=== PATIENT | male | born 1945 | race Caucasian/White ===

== ENCOUNTER 2021-03-25 03:37 | Observation (INO) | payer MEDICARE, OTHER ==
[~2021-03-25] VITALS: Ht 175.3 cm; Wt 79.4 kg
[2021-03-25 03:41] VITALS: BP 154/91
[2021-03-25] MEDS ORDERED: METFORMIN HCL500 M3 PO (03:54)
[2021-03-25] MEDS ORDERED: GLIPIZIDE 10 MG10 MG PO (03:54)
[2021-03-25] MEDS ORDERED: AVAPRO75 MG PO (03:56)
[2021-03-25] MEDS ORDERED: ASA81BEC PO (03:56)
[2021-03-25] MEDS ORDERED: CRESTOR10 MG PO (03:57)
[2021-03-25] MEDS ORDERED: SORINE 80 MG TA80 MG PO (03:58)
[2021-03-25 04:02] LABS: ABSOLUTE BASOPHILS 0.1 thou/uL (0.0-0.2); ABSOLUTE EOSINOPHILS 0.7 thou/uL (0.0-0.7); ABSOLUTE LYMPHOCYTES 1.6 thou/uL (0.8-5.3); ABSOLUTE MONOCYTES 1.1 thou/uL (0.0-1.2); ABSOLUTE NEUTROPHILS 5.5 thou/uL (1.6-8.1); BASOPHILS 0.7 %; EOSINOPHILS 7.9 %; HEMATOCRIT 47.1 % (42.0-52.0); HEMOGLOBIN 15.8 gm/dL (14.0-18.0); LYMPHOCYTES 17.8 %; MCH 32.2 pg (26.0-34.0); MCHC 33.5 g/dL (28.0-37.0); MCV 95.9 fL (80.0-100.0); MONOCYTES 11.9 %; MPV 11.1 fl. (7.2-11.1); NUCLEATED RBCS 0 /100WBC; PLATELET COUNT* 130 thou/uL (150-400); POLYS 61.7 %; RBC 4.91 mil/uL (4.50-6.00); RDW-CV 13.6 % (10.5-14.5); WBC 8.8 thou/uL (4.0-11.0)
[2021-03-25 04:27] LABS: CREATININE 1.6 mg/dL (0.6-1.3); POTASSIUM 4.1 mmol/L (3.5-5.1)
[2021-03-25 04:30] LABS: APTT 25.5 Seconds (25.0-31.3); PROTIME 10.5 Seconds (9.20-11.50)
[2021-03-25 04:38] LABS: TOTAL BILIRUBIN 0.4 mg/dL (<0.1-1.0); TOTAL PROTEIN 7.5 g/dL (6.4-8.2)
[2021-03-25 04:42] LABS: URINE BILIRUBIN NEGATIVE (Negative); URINE BLOOD TRACE (Negative); URINE CLARITY CLEAR; URINE COLOR YELLOW; URINE GLUCOSE-RANDOM TRACE (Negative); URINE KETONES NEGATIVE (Negative); URINE LEUKOCYTES-REFLEX NEGATIVE (Negative); URINE NITRITE-REFLEX NEGATIVE (Negative); URINE PROTEIN 1+ (Negative); URINE SPECIFIC GRAVITY <= 1.005 (1.005-1.030); URINE UROBILINOGEN 0.2 E.U./dl (0.2-1.0)
--- NOTE | 2021-03-25 09:34 | EKG ---
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1945 Requested By: Maria Hernandez Order Number: [id number] MD: Francisco Javier Figueroa Measurements Intervals [place] Rate: 93 P: [place]: QRS: 79 QRSD: 138 T: -77 QT: 354 QTc: 441 Interpretive Statements Atrial fibrillation Nonspecific intraventricular conduction delay Nonspecific repol abnormality, diffuse leads No previous ECG available for comparison Electronically Signed On 03-25-2021 9:34:25 BUSINESS SUPPORT PROFESSIONAL by Francisco Javier Figueroa [email or web address] <ELECTRONICALLY SIGNED> By: Francisco Javier Figueroa MD, [facility] 03/25/21 0934 0343 0343 Francisco Javier Figueroa MD, [facility] /EPI
[2021-03-25 09:42] VITALS: BP 149/73
--- NOTE | 2021-03-26 09:53 | CON ---
[address] [address] CONSULTATION Name: RAYRAY VALDES Room: [address] [place] Bui#: [id number] Admission: 03/25/21 Attend Phys: Sylvester Bang Discharge: 03/25/21 Date of : 43 Report #: [id number] THIS REPORT FOR: cc: Sarah Stroud MD, Marjon MD Blick, David R. MD [facility] ~ cc: Sarah Stroud MD DATE OF CONSULTATION: 03/25/2021 CARDIOLOGY CONSULTATION HISTORY OF PRESENT ILLNESS: The patient is a 76-year-old single white male who came to the Emergency Room last night complaining of chest pain. Unfortunately, the patient has never been to [employer] before. There are no old records available. The history is obtained from the patient. He notes in 1995, he had a heart attack and had quadruple coronary bypass surgery at [facility]. He apparently lived in [place] at that time. He had 4 stents placed after that time. He eventually required a second coronary artery bypass surgery in 2018 at [facility] with 2 additional bypass grafts. He has not had a stress test since that time. He is not very active at this time. He has a history of paroxysmal atrial fibrillation, but apparently was never cardioverted. He was on warfarin in the past, but did not like having his blood drawn so he stopped taking it. He is actually admitted to [facility] in December for recurrent atrial fibrillation and seen in the Emergency Room and was discharged. He states in the past he was offered Xarelto and Eliquis, but could not afford it. He was doing well altough yesterday he felt weak. He went to bed last night. He then awakened at 3 in the morning with chest discomfort. He felt short of breath, nausea. He took two nitroglycerins. His ex- drove him to the Emergency Room at 3 in the morning. The pain gradually resolved after about an hour. I was asked to see him for further evaluation and treatment. He denied any recent fever, cough, blood in the stool. The pain was not related to food. He had no belching. He denied any recent trauma to his chest. The pain was not related to lifting. He denied any skin rash. He denied any increased shortness of breath, although he has had a sinus infection. He denied any palpitations, lightheadedness, or syncope. PAST MEDICAL HISTORY: Significant for tonsillectomy, cataract extraction, hypertension, diabetes, hyperlipidemia. MEDICATIONS: Include aspirin, ____, metformin, glipizide, Crestor, sotalol. 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 [address] CONSULTATION Name: RAYRAY VALDES Room: [address] [place] Bui#: [id number] Admission: 03/25/21 Attend Phys: Sylvester Bang Discharge: 03/25/21 Date of : 43 Report #: [id number] FAMILY HISTORY: Negative for heart disease. SOCIAL HISTORY: He is single, lives with his ex- in [place]. 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 He smokes half pack of cigarettes. No alcohol abuse. REVIEW OF SYSTEMS: No history of stroke, asthma, liver disease. He has chronic kidney disease, no cancer, no psychiatric illness, no chronic skin condition. PHYSICAL EXAMINATION: GENERAL: Revealed an elderly male, lying in bed, appeared in no distress. VITAL SIGNS: His blood pressure 140/80, pulse is 100 and irregular. He was afebrile. HEENT: He was anicteric. Conjunctivae pink. Mucous membranes moist. NECK: Neck veins not distended. No carotid bruits. Neck is supple. CHEST: Revealed distant breath sounds. HEART: Irregular rhythm, no significant murmurs. ABDOMEN: Soft. EXTREMITIES: Had no pitting edema. Posterior tibial pulses 2+ on the right, could not be palpated in the left. SKIN: Cool and dry. NEUROLOGIC: Nonfocal. LABORATORY DATA: His ECG showed atrial fibrillation with increased ventricular response rate, nonspecific ST and T-wave changes were noted. His workup in the Emergency Room: His BUN is 31, creatinine was 1.6. His high sensitivity troponin was 16. BNP 372. White blood cell count 8.8, hemoglobin 15.8. His COVID antigen stat test was negative. Urinalysis in the Emergency Room showed 1+ protein, negative for leukocytes. He had a chest x-ray in the Emergency Room that showed normal heart size, clear lung gould. He actually had a CT scan of the abdomen without contrast because of elevated lipase that showed renal cysts. IMPRESSION AND RECOMMENDATIONS: 1. Unstable angina. Recommend cardiac catheterization. 2. Hypertension. The patient is on ARB. 3. Diabetes. The patient is on oral medications. 4. Hyperlipidemia. The patient is on a statin drug. 5. Atrial fibrillation. I would not recommend cardioversions. I would consider discontinuing sotalol. I would recommend anticoagulation. [address] [address] CONSULTATION Name: RAYRAY VALDES Room: [address] [facility] [place] Bui#: [id number] Admission: 03/25/21 Attend Phys: Sylvester Bang Discharge: 03/25/21 Date of : 43 Report #: [id number] 6. Tobacco abuse. 7. Chronic kidney disease. <ELECTRONICALLY SIGNED> By: Francisco Javier Figueroa MD, FACC 03/26/21 0953 0741 [id number] Figueroa MD, FACC /nt
== END 2021-03-25 09:44 | disposition home or self-care (01) ==
LOC: M.ERS 03:37 → M.TBA-ER 04:39
PROVIDERS: Personal Emergency Response Attendant; ADMIT Internal Medicine; ATTEND Internal Medicine
DX: R07.89 Other chest pain (principal); Z20.822 Contact with and (suspected) exposure to COVID-19; I48.91 Unspecified atrial fibrillation; I25.10 Atherosclerotic heart disease of native coronary artery without angina pectoris; E11.9 Type 2 diabetes mellitus without complications; I10 Essential (primary) hypertension; R00.2 Palpitations; Z79.84 Long term (current) use of oral hypoglycemic drugs; Z79.82 Long term (current) use of aspirin; Z79.899 Other long term (current) drug therapy; Z88.8 Allergy status to other drugs, medicaments and biological substances